=== PATIENT | male | born 2000 | race Caucasian/White ===

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

== ENCOUNTER 2020-03-03 21:23 | Emergency (ER) | payer MEDICAID ==
--- NOTE | 2020-03-03 22:20 | ER Document Report ---
ED Medical Screen (RME) - General Chief Complaint: Head Injury Stated Complaint: HEAD INJURY/HEAD LACERATION/FELL BACK Primary Care Provider: TAYLOR GO DO [Primary Care Provider] - Follow up as needed Notes: Patient is a 19-year-old white male with no reported past medical history presents the emergency department today with a chief complaint of head injury that occurred about 3 hours prior to arrival. The patient reports that he was wrestling around with some friends, playing when he fell backwards striking the left posterior parietal area on the side of a sharp edge of a wet bar, then fell landing on the right posterior parietal and right occipital region. The patient states he "almost passed out". States that when he stood he felt like he had to left feet and could not keep his balance. He states that he developed a slow gradual headache after this that hurts in the right frontal region. Complains of a knot to the right occipital and right parietal area. Complains of some neck pain around C7. Denies any numbness tingling or weakness. Denies any visual disturbances or hearing loss. Denies any drainage from the bilateral ear canals. Denies any nosebleed, dental injury. I have treated and performed a rapid initial assessment of this patient. A comprehensive ED assessment and evaluation of the patient, analysis of test results and completion of medical decision making process will be conducted by additional ED providers. PHYSICAL EXAMINATION: GENERAL: Well-appearing, well-nourished and in no acute distress. A&Ox4. Answers questions appropriately. TRAVEL OUTSIDE OF THE [place] IN LAST 30 DAYS: No - Related Data Allergies/Adverse Reactions: erythromycin base [Erythromycin Base] Allergy (Verified 03/03/20 22:14) z-pack Allergy (Uncoded 07/25/18 13:53) Past Medical History Pulmonary Medical History: Reports: Hx Asthma Renal/ Medical History: Denies: Hx Peritoneal Dialysis Musculoskeltal Medical History: Reports Hx Musculoskeletal Trauma Traumatic Medical History: Reports: Hx Fractures - Right fifth metacarpals this is the third time - Immunizations Immunizations up to date: Yes Hx Diphtheria, Pertussis, Tetanus Vaccination: Yes Physical Exam - Vital signs Vitals: Temp Pulse Resp BP Pulse Ox 97.4 F 87 20 132/61 H 97 03/03/20 21:30 03/03/20 21:30 03/03/20 21:30 03/03/20 21:30 03/03/20 21:30 Course - Vital Signs Vital signs: Temp Pulse Resp BP Pulse Ox 97.4 F 87 20 132/61 H 97 03/03/20 21:30 03/03/20 21:30 03/03/20 21:30 03/03/20 21:30 03/03/20 21:30 Doctor's Discharge - Discharge Referrals: TAYLOR GO DO [Primary Care Provider] - Follow up as needed
--- NOTE | 2020-03-03 23:36 | RADIOLOGY REPORT (SQ) ---
CT BRAIN AND CERVICAL SPINE HISTORY: Trauma. COMPARISON: None. TECHNIQUE: CT scan of the brain and cervical spine was performed without IV contrast. This exam was performed according to our departmental dose-optimization program, which includes automated exposure control, adjustment of the mA and/or kV according to patient size and/or use of iterative reconstruction technique. FINDINGS: BRAIN: The ventricles, cisterns, and sulci are age-appropriate. No evidence of acute infarction, intracranial hemorrhage, extra-axial fluid collection, or midline shift. No air-fluid levels are seen in the paranasal sinuses to suggest acute sinusitis. No depressed skull fracture. CERVICAL SPINE: No acute cervical fracture or prevertebral soft tissue swelling. There is straightening of the normal cervical lordosis, which may be due to cervical collar, muscle spasm, or patient positioning. The facet joints and disc spaces are preserved. No advanced canal stenosis is identified. IMPRESSION: 1. No acute intracranial hemorrhage. 2. No acute fracture or subluxation of the cervical spine.
--- NOTE | 2020-03-04 00:20 | ER Document Report ---
ED Head/Face/Scalp Injury - General Chief Complaint: Fall Stated Complaint: HEAD INJURY/HEAD LACERATION/FELL BACK Time Seen by Provider: 03/03/20 23:39 Primary Care Provider: TAYLOR GO DO [Primary Care Provider] - Follow up as needed Notes: Patient is a 19-year-old male that comes emergency department for chief complaint of head injury. Patient states that he was wrestling with his roommate at his house prior to arrival and he fell backwards, striking the left lateral side of his head against the edge of the bar in the house. Patient states that he was dazed in the felt like he was going to pass out. He states when he got up he felt somewhat unsteady. He denies vomiting, visual changes, focal numbness or weakness. Patient states that since the injury he is starting to get some mid to lower neck pain as well. Patient denies any surgeries, daily medications or past medical history. He denies alcohol tonight, he denies recreational drugs. Tetanus reportedly up-to-date. TRAVEL OUTSIDE OF THE [place] IN LAST 30 DAYS: No - Related Data Allergies/Adverse Reactions: erythromycin base [Erythromycin Base] Allergy (Verified 03/03/20 22:14) z-pack Allergy (Uncoded 07/25/18 13:53) Past Medical History - General Information source: Patient - Social History Smoking Status: Current Every Day Smoker Frequency of alcohol use: None Drug Abuse: None Lives with: Friend Family History: Reviewed & Not Pertinent Renal/ Medical History: Denies: Hx Peritoneal Dialysis Musculoskeletal Medical History: Reports Hx Musculoskeletal Trauma Traumatic Medical History: Reports: Hx Fractures - Right fifth metacarpals x3 - Immunizations Immunizations up to date: Yes Hx Diphtheria, Pertussis, Tetanus Vaccination: Yes Review of Systems - Review of Systems Constitutional: No symptoms reported EENT: No symptoms reported Cardiovascular: No symptoms reported Respiratory: No symptoms reported Gastrointestinal: No symptoms reported Genitourinary: No symptoms reported Male Genitourinary: No symptoms reported Musculoskeletal: See HPI Skin: See HPI Hematologic/Lymphatic: No symptoms reported Neurological/Psychological: No symptoms reported Physical Exam - Vital signs Vitals: Temp Pulse Resp BP Pulse Ox 97.4 F 87 20 132/61 H 97 03/03/20 21:30 03/03/20 21:30 03/03/20 21:30 03/03/20 21:30 03/03/20 21:30 - Notes Notes: GENERAL: Alert, interacts well. No acute distress. HEAD: Normocephalic. There is a 0.5 cm laceration over the left lateral temporal/parietal area with no swelling of the scalp, no other signs of trauma. EYES: Pupils equal, round, and reactive to light. Extraocular movements intact. ENT: Oral mucosa moist, tongue midline. Oropharynx unremarkable. Airway patent. Nares patent, sinuses non-tender, ear canals unremarkable, TM's intact. NECK: Full range of motion. Supple. Trachea midline. No lymphadenopathy. LUNGS: Clear to auscultation bilaterally, no wheezes, rales, or rhonchi. No respiratory distress. Non-tender chest wall. HEART: Regular rate and rhythm. No murmur ABDOMEN: Soft, non-tender. Non-distended. EXTREMITIES: Moves all 4 extremities spontaneously. No edema, normal radial and dorsalis pedis pulses bilaterally. No cyanosis. BACK: There is some generalized tenderness of the mid to lower neck, nonspecific. 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 No saddle anesthesia, normal distal neurovascular exam. Moves all extremities in full range of motion. NEUROLOGICAL: Alert and oriented x3. Normal speech. Cranial nerves II through XII grossly intact. Strength 5/5 in all extremities. PSYCH: Normal affect, normal mood. SKIN: Warm, dry, normal turgor. No rashes or lesions noted. Course - Re-evaluation Re-evalutation: I did review CT of the head and neck from triage, these were unremarkable with no acute findings. Patient's physical exam is reassuring, patient has no reported neurological deficits. The laceration of the scalp is very small, patient has a thin and close hair so this was Dermabond and after discussing options with patient. Discussed wound care, hemorrhage precautions, return precautions in detail with patient and roommate. They state understanding and agreement plan. Stable and well-appearing at time of discharge. - Vital Signs Vital signs: Temp Pulse Resp BP Pulse Ox 97.8 F 75 16 137/66 H 98 03/04/20 00:27 03/04/20 00:27 03/04/20 00:27 03/04/20 00:27 03/04/20 00:27 Procedures - Laceration/Wound Repair Left parietal/occipital scalp Wound length (cm): 0.5 Wound's Depth, Shape: Superficial, Linear Laceration pre-procedure: Sterile PPE donned, Sterile drapes applied, Shur-Clens applied Wound explored: Clean, No foreign body removed Wound Repaired With: Dermabond Layer Closure?: No Post-procedure NV exam normal: Yes Complications: No Discharge - Discharge Clinical Impression: Neck pain Scalp laceration Qualifiers: Encounter type: initial encounter Qualified Code(s): S01.01XA - Laceration without foreign body of scalp, initial encounter Head injury Qualifiers: Encounter type: initial encounter Qualified Code(s): S09.90XA - Unspecified injury of head, initial encounter Contusion of right ear Qualifiers: Encounter type: initial encounter Qualified Code(s): S00.431A - Contusion of right ear, initial encounter Condition: Stable Disposition: HOME, SELF-CARE Additional Instructions: The CAT scan of your head and neck do not show any concerning findings. Please follow head injury precautions listed below as we discussed. You may have postconcussive symptoms as we discussed as well, see details below. Rest, apply heat to your neck, take anti-inflammatory muscle x-rays prescribed, symptoms should worsen for about 2 days and then gradually resolve. The wound has been closed with Dermabond, this will protect the area, this should fall off in about 5-7 days on its own. You can clean the area but avoid soaking or scrubbing the area. If the dermabond has not come off on its own after a week you can remove this by applying a topical antibiotic. Follow-up with primary care. Return for any concerning symptoms including signs of infection such as pain, developing redness, fever, or any other concerning or worsening symptoms. Head Injury Precautions At this point, there is no evidence that your head injury is serious. Observation is necessary, however. Limit activity for the first 24 hours. During the first 24 hours, check to see approximately every two to three hours that the patient is easily arousable, responds normally, and can perform common tasks such as walking without difficulty. Contact your doctor or go to the hospital if any of the following things occur: Persistent vomiting, difficulty in arousing the patient, worsening or continued headache, or failure to improve as expected. Head injuries can cause symptoms that persist for a few days or even a few weeks. Post-Concussion Syndrome Post-concussion syndrome often follows a mild head injury. Dizziness, mild nausea, mild headache, trouble concentrating, and a general sense of "not being right" may persist for a week or two. This is a frequent complication of concussion. However, if the symptoms worsen, or new symptoms develop, you should be re-examined by the physician. There is no specific cure for post-concussion syndrome. You can take mild pain medication such as ibuprofen or acetaminophen. While you should not drive if you are dizzy, you can get back to your regular activities as quickly as the symptoms will allow. And while vigorous exercise may worsen the headache, mild physical activity often is helpful. Sitting and thinking about your symptoms will worsen them. If difficulties continue, you may need referral for special therapy to help you regain full mental function. Call the physician if you are worsening, or if symptoms are still present in one week. Report any new symptoms immediately. Prescriptions: Cyclobenzaprine HCl 1 - 2 tab PO Q8H PRN #20 tablet PRN Reason: Naproxen 500 mg PO BID PRN #20 tablet PRN Reason: Forms: Return to Work Referrals: TAYLOR GO, [Primary Care Provider] - Follow up as needed
[2020-03-04 00:28] VITALS: BP 137/66
== END 2020-03-04 00:28 | disposition home or self-care (01) ==
LOC: ER 21:23
PROC: 0HQ0XZZ Repair Scalp Skin, External Approach (ICD-10-PCS; principal; 2020-03-03)
DX: S01.01XA Laceration without foreign body of scalp, initial encounter (principal); S00.431A Contusion of right ear, initial encounter; S09.90XA Unspecified injury of head, initial encounter; R42 Dizziness and giddiness; M54.2 Cervicalgia; X58.XXXA Exposure to other specified factors, initial encounter; Y93.72 Activity, wrestling; Y92.009 Unspecified place in unspecified non-institutional (private) residence as the place of occurrence of the external cause; Z88.1 Allergy status to other antibiotic agents; F17.200 Nicotine dependence, unspecified, uncomplicated
CPT/HCPCS: 12001; G0168; 70450; 72125; 99284